=== PATIENT | male | born 1990 | race Caucasian/White ===

== ENCOUNTER 2022-07-23 17:22 | Emergency (ER) | payer BC, SELFPAY ==
[2022-07-23 17:30] VITALS: BP 104/67; PULSE 84; RESP 15; TEMP 36.4; O2SAT 97; BMI 22.8
--- NOTE | 2022-07-23 17:48 | DI.RAD.S_ITS ---
PROCEDURE: XR CLAVICLE RT INDICATIONS: fall off skateboard TECHNIQUE: 2 views of the clavicle were acquired. COMPARISON: None. FINDINGS: Bones: Comminuted right mid clavicle fracture with cranial angulation. There is probably displacement at the right sternoclavicular articulation. The acromioclavicular joint appears intact. Soft tissues: No suspicious soft tissue calcifications. The underlying lung appears fully inflated. IMPRESSION: 1. Comminuted and displaced right mid clavicle fracture with probable sternoclavicular dislocation. Dictated by: Geno Wiley M.D. on 07/23/2022 at 17:34 Approved by: Geno Wiley M.D. on 07/23/2022 at 17:35
--- NOTE | 2022-07-23 18:21 | ED.FALL ---
HPI - Fall General Chief Complaint: Fall Stated Complaint: R side collarbone pain, fall skateboarding Time Seen by Provider: 07/23/22 18:09 Source: patient Mode of arrival: Ambulatory History of Present Illness HPI Narrative: Patient is a 31-year-old male here for evaluation of a right shoulder injury. He was skateboarding when he fell and landed on his right shoulder. He did hit his head but there was no loss of consciousness. No neck pain. No other injuries from the event. He is not on blood thinners. Reports no right elbow or wrist discomfort. Related Data Allergies Allergy/AdvReac Type Severity Reaction Status Date / Time Sulfa (Sulfonamide Allergy Verified 07/23/22 17:30 Antibiotics) Review of Systems Constitutional Constitutional: Reports system reviewed and no additional complaints, except as documented Musculoskeletal Musculoskeletal: Reports system reviewed and no additional complaints, except as documented Integumentary/Breasts Skin/Breast: Reports system reviewed and no additional complaints, except as documented Neurologic Neurologic: Reports system reviewed and no additional complaints, except as documented Hematologic/Lymphatic On Anticoagulants: No Patient History Social History Smoking Status: Unknown if ever smoked Smoking Status: Unknown if ever smoked alcohol intake frequency: holidays/special occasions only Substance Use Type: does not use Exam Initial Vital Signs Initial Vital Signs: Vital Signs Temperature 97.6 F 07/23/22 17:30 Pulse Rate 84 07/23/22 17:30 Respiratory Rate 15 07/23/22 17:30 Blood Pressure 104/67 07/23/22 17:30 Pulse Oximetry 97 07/23/22 17:30 Oxygen Delivery Method Room Air 07/23/22 17:30 Cardio Pulses: radial pulses present on the right Skin General: no rashes or lesions noted Other: Some tenting of the skin over the right collar bone but has good color. No abrasions. Neuro Gait: normal gait Sensory Exam: no sensory deficits noted Extrem Other: He does have discomfort over his right collar bone with some tenting of the skin in this area. His right elbow and right wrist unremarkable. Procedures Orthopedic Splinting/Casting Injury #1: Side: right Upper Extremity Injury Location: shoulder Upper Extremity Immobilizer: sling/shoulder immobilizer Post splinting neuro exam: intact Post splinting vascular exam: intact Placed by: Nursing Course Orders Ordered: ED Orders 07/23/22 17:48 XR clavicle RT Stat Vital Signs Vital signs: Vital Signs - 8 hr 07/23/22 17:30 Temperature 97.6 F Pulse Rate 84 Respiratory Rate 15 Blood Pressure 104/67 Pulse Oximetry 97 Oxygen Delivery Method Room Air MDM - Fall Imaging Data Extremity x-ray #1: Radiologist's Impression: PROCEDURE:? XR CLAVICLE RT ? INDICATIONS:? fall off skateboard ? TECHNIQUE:? 2 views of the clavicle were acquired.? ? COMPARISON:? None. ? FINDINGS:? ? Bones:? Comminuted right mid clavicle fracture with cranial angulation.? There is probably displacement at the right sternoclavicular articulation.? The acromioclavicular joint appears intact. ? Soft tissues:? No suspicious soft tissue calcifications.? The underlying lung appears fully inflated. ? IMPRESSION:? ? 1. Comminuted and displaced right mid clavicle fracture with probable sternoclavicular dislocation.? [facility] Narrative Medical decision making narrative: Patient is neurovascularly intact with a clavicular fracture noted on the x-ray. There is some tenting of the skin but it appears well. He was placed in a sling. He denied the need for pain medication. We did discuss clavicle fractures and expected course. He was advised that he needs to follow-up with orthopedic surgery. He was given information for this. He was given return precautions. He expressed understanding and agreement. Discharge Plan Departure Patient Disposition: Home Clinical Impression: Clavicular fracture Instructions: How to Use a Sling, DI for Clavicle Fracture-Adult Activity Restrictions/Additional Instructions: The sling is for your comfort. You can take it off to shower and also to perform some exercises with your right shoulder. I do recommend that you contact the orthopedic doctor at the number provided below for follow-up. Return to the emergency department for new symptoms. Referrals: Gaby Adams MD [Physician] - Stand Alone Forms: Patient Portal/API
== END 2022-07-23 18:39 | disposition home or self-care (01) ==
PROVIDERS: Emergency Provider Emergency Medicine
DX: S42.001A Fracture of unspecified part of right clavicle, initial encounter for closed fracture (principal); V00.131A Fall from skateboard, initial encounter
CPT/HCPCS: 73000; 99283